=== PATIENT | female | born 1950 | race Caucasian/White ===

== ENCOUNTER 2019-12-08 12:55 | Outpatient (CLI) | payer MEDICARE, SELFPAY ==
[2019-12-08 14:31] LABS: Thyroid Stimulating Hormone 2.82 uIU/mL (0.36-3.74); Vitamin B12 597 pg/mL (193-986)
[2019-12-14 09:23] LABS: Vitamin D 25 Hydroxy 49 ng/mL (30-100)
== END 2019-12-08 12:56 | disposition home or self-care (01) ==
LOC: CHSLAB 13:02
DX: G62.9 Polyneuropathy, unspecified (principal); E11.29 Type 2 diabetes mellitus with other diabetic kidney complication; R80.9 Proteinuria, unspecified; Z79.4 Long term (current) use of insulin; E66.01 Morbid (severe) obesity due to excess calories
CPT/HCPCS: 36415; 82306; 82607; 84443

== ENCOUNTER 2020-01-02 16:00 | Outpatient (CLI) | payer MEDICARE, SELFPAY ==
--- NOTE | 2020-01-16 12:09 | SLEEP_ITS ---
Basic nocturnal polysomnogram. DATE OF STUDY: 01/02/2020 ORDERING PHYSICIAN: Dr. Suhail Manuel. REASON FOR THE STUDY: Sleep apnea, unspecified. 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 Her sleep survey indicates that she is having this test preoperatively, but does not list what type of surgery she is having. She denies snoring. She denies awakening at night with heartburn or belching. She denies waking from sleep feeling short of breath. She rarely has trouble sleeping with a cold. She denies gasping for breath at night, having breathing problems reported to her by others, sweating excessively at night, noticing her heart pounding irregularly at night, falling asleep during the day, falling asleep involuntarily, falling asleep while driving, sleeping during physical effort or with laughing or crying. She does not have loss of muscle tone with strong emotion. She does not have daytime difficulties due to excessive sleepiness. She does not feel paralyzed on waking or falling asleep and does not have vivid dreamlike scenes upon awakening or falling asleep. She is never afraid to go to sleep. She denies nightmares. She occasionally remembers her dreams. She denies racing thoughts, sadness, depression, anxiety, muscular tension, or noticing parts of her body jerk. She does not kick at night. She does not have crawly achy feelings in her legs. She does not have leg pain at night or morning jaw pain. She denies grinding her teeth at night. She occasionally is bothered by pain during the day, frequently is awakened by pain at night and frequently wakes up feeling stiff in the morning. She rarely has sore achy muscles. Normal bedtime is between 11:30 and 12 midnight, waking twice during the night to use the bathroom. She does have some pressure and pain in her legs. She also wakes up just to change positions. She wakes in the morning between 7 and 8 a.m.. Weekend schedule is the same. She does not take naps. She most of the time is drowsy in the morning for 3 hours or longer. MEDICAL COMORBIDITIES: Hyperlipidemia, hypertension, depression, diabetes mellitus, seasonal allergies, asthma/COPD, history of pulmonary embolism currently on anticoagulation. MEDICATIONS: 1. Rosuvastatin 40 mg a day. 2. Xarelto 20 mg a day. 3. Metoprolol succinate 50 mg a day. 4. Symbicort 160/4.5 two puffs twice a day. 5. Albuterol 90 mcg 2 puffs q.4 hours p.r.n. shortness of breath. 6. Montelukast 10 mg daily. 7. Topical nystatin applied to the affected areas twice a day. 8. Estradiol 1 mg daily. 9. Hydroxyzine 25 mg 1 tablet t.i.d. p.r.n. itching. 10. Lasix 20 mg p.r.n. swelling. 11. Losartan/hydrochlorothiazide 100/25 one tablet daily. 12. Duloxetine 60 mg a day. 13. Metformin 500 mg 1 tablet twice a day. 14. Azelastine 1 squirt each nostril twice a day. 15. DuoNeb q.8 hours as needed for shortness of breath. 16. Zyrtec 10 mg daily. 17. Potassium gluconate 83 mg 1 tablet daily. 18. Vitamin D3 2000 units daily. 19. Magnesium oxide 400 mg daily. 20. Osteo Bi-Flex 1 tablet daily. HABITS: Tobacco, a half pack per day for 2 years, quit 42 years ago. No alcohol. DESCRIPTION OF THE STUDY: On the Chappell Sleepiness Scale, her score is 13, elevated. This was conducted as a monitored study in the lab, initially requested as a split night study, but she did not meet criteria early enough. This was conducted using the [employer] multiple channel system including EOG, EEG, submental EMG, EKG, nasal and oral airflow using thermistors and nasal pressure sensors, chest and abdominal belts, body position data and pulse oximetry. The study was scored using [facility] guidelines.
== END 2020-01-02 16:01 | disposition home or self-care (01) ==
LOC: ANHCSM 16:02
DX: G47.30 Sleep apnea, unspecified (principal)
CPT/HCPCS: 95810

== ENCOUNTER 2020-04-17 10:10 | Outpatient (CLI) | payer MEDICARE, SELFPAY ==
[2020-04-17 10:51] LABS: Creatinine Urine 81.13 mg/dL (40-278)
[2020-04-17 10:52] LABS: Microalbumin Urine Random > 400.0 mg/L
[2020-04-17 11:14] LABS: Alanine Aminotransferase 26 U/L (14-59); Albumin Level 3.2 g/dL (3.4-5.0); Alkaline Phosphatase 124 U/L (46-116); Anion Gap 11.1 mmol/L (7-16); Aspartate Amino Transferase 20 U/L (15-37); Bilirubin,Total 0.4 mg/dL (0.00-1.00); Blood Urea Nitrogen 22 mg/dL (7-18); Calcium 9.5 mg/dL (8.5-10.1); Carbon Dioxide 33 mmol/L (21-32); Chloride 101 mmol/L (98-108); Cholesterol 140 mg/dL (0-200); Estimated Glomerular Filt Rate 60; Glucose 196 mg/dL (70-99); HDL Direct 44 mg/dL (40-60); LDL Cholesterol Calculated 68 mg/dL (<130); Osmolality Calculated 298 mOsm/kg (285-295); Potassium 5.1 mmol/L (3.5-5.1); Sodium 140 mmol/L (136-145); Total Protein 7.4 g/dL (6.4-8.2); Triglycerides 140 mg/dL (0-150)
[2020-04-19 22:10] LABS: C-Peptide 2.18 ng/mL (0.80-3.85)
== END 2020-04-17 10:11 | disposition home or self-care (01) ==
DX: R80.8 Other proteinuria (principal); E11.29 Type 2 diabetes mellitus with other diabetic kidney complication; Z79.4 Long term (current) use of insulin; Z96.41 Presence of insulin pump (external) (internal); E11.41 Type 2 diabetes mellitus with diabetic mononeuropathy
CPT/HCPCS: 36415; 80053; 80061; 82043; 84681

== ENCOUNTER 2020-06-15 13:20 | Outpatient (CLI) | payer MEDICARE, SELFPAY ==
[2020-06-15 14:11] LABS: Basophils Absolute Auto 0.04 K/mm3 (0.00-0.10); Basophils Percent Auto 0.6 % (0.0-1.0); Eosinophils Absolute Auto 0.15 K/mm3 (0.02-0.50); Eosinophils Percent Auto 2.3 % (1.0-6.0); Hemoglobin 12.7 g/dL (11.7-13.8); Immature Granulocyte Absolute 0.02 K/mm3 (0.00-0.00); Immature Granulocyte Percent A 0.3 % (0.0-0.0); Lymphocytes Percent Auto 35.8 % (18.0-42.0); Mean Corpuscular HGB Conc 31.8 g/dL (32.0-36.0); Mean Corpuscular Hemoglobin 27.4 pg (27.0-31.0); Mean Corpuscular Volume 86.2 fL (78.0-102.0); Mean Platelet Volume 11.2 fl (9.2-11.8); Monocytes Absolute Auto 0.37 K/mm3 (0.10-0.90); Monocytes Percent Auto 5.8 % (2.0-11.0); Neutrophils Absolute Auto 3.6 K/mm3 (1.7-7.2); Neutrophils Percent Auto 55.2 % (50.0-70.0); Platelet Count Result 228 K/mm3 (150-420); Red Blood Count 4.64 M/mm3 (4.20-5.40); White Blood Count 6.4 K/mm3 (4.8-10.8)
[2020-06-15 14:53] LABS: Albumin Level 3.3 g/dL (3.4-5.0); Anion Gap 6 mmol/L (8-16); Blood Urea Nitrogen 18 mg/dL (7-18); Carbon Dioxide 31 mmol/L (21-32); Chloride 106 mmol/L (98-108); Estimated Glomerular Filt Rate > 60; Glucose 179 mg/dL (70-99); Osmolality Calculated 301 mOsm/kg (285-295); Potassium 4.5 mmol/L (3.5-5.1); Sodium 143 mmol/L (136-145)
[2020-06-16 11:10] LABS: Creatinine Urine 132.67 mg/dL (40-278); Total Protein Urine Random 55.3 mg/dL (0.0-11.9)
[2020-06-19 15:25] LABS: Parathyroid Intact 46 pg/mL (14-64)
== END 2020-06-15 13:21 | disposition home or self-care (01) ==
LOC: CHSLAB 13:27
DX: N18.9 Chronic kidney disease, unspecified (principal)
CPT/HCPCS: 36415; 80069; 82570; 83970; 84156; 85025

== ENCOUNTER 2020-08-23 10:15 | Outpatient (CLI) | payer MEDICARE, SELFPAY ==
[2020-08-23 10:33] LABS: Basophils Absolute Auto 0.04 K/mm3 (0.00-0.10); Basophils Percent Auto 0.5 % (0.0-1.0); Eosinophils Absolute Auto 0.18 K/mm3 (0.02-0.50); Eosinophils Percent Auto 2.2 % (1.0-6.0); Immature Granulocyte Absolute 0.02 K/mm3 (0.00-0.00); Immature Granulocyte Percent A 0.2 % (0.0-0.0); Lymphocytes Absolute Auto 2.54 K/mm3 (1.10-4.50); Lymphocytes Percent Auto 31.4 % (18.0-42.0); Mean Corpuscular HGB Conc 32.5 g/dL (32.0-36.0); Mean Corpuscular Hemoglobin 28.3 pg (27.0-31.0); Mean Platelet Volume 10.5 fl (9.2-11.8); Monocytes Absolute Auto 0.46 K/mm3 (0.10-0.90); Monocytes Percent Auto 5.7 % (2.0-11.0); Neutrophils Absolute Auto 4.8 K/mm3 (1.7-7.2); Platelet Count Result 258 K/mm3 (150-420); Red Cell Distribution Width 15.4 % (11.6-14.4); White Blood Count 8.1 K/mm3 (4.8-10.8)
[2020-08-23 10:59] LABS: Hemoglobin A1C 6.4 % (<5.7)
[2020-08-23 11:54] LABS: Albumin Level 3.4 g/dL (3.4-5.0); Anion Gap 9 mmol/L (8-16); Blood Urea Nitrogen 12 mg/dL (7-18); Carbon Dioxide 30 mmol/L (21-32); Chloride 106 mmol/L (98-108); Estimated Glomerular Filt Rate > 60; Glucose 98 mg/dL (70-99); Osmolality Calculated 299 mOsm/kg (285-295); Potassium 4.2 mmol/L (3.5-5.1); Sodium 145 mmol/L (136-145); Thyroid Stimulating Hormone 3.37 uIU/mL (0.36-3.74)
[2020-08-23 12:03] LABS: Calcium 9.1 mg/dL (8.5-10.1)
[2020-08-24 10:48] LABS: Creatinine Urine 77.67 mg/dL (40-278)
[2020-08-24 10:49] LABS: MALB Creatinine Ratio 305.1 mg/g (0-30)
[2020-08-27 11:51] LABS: Parathyroid Intact 41 pg/mL (14-64)
[2020-08-28 12:57] LABS: C-Peptide 1.48 ng/mL (0.80-3.85)
== END 2020-08-23 10:16 | disposition home or self-care (01) ==
LOC: CHSLAB 10:19
DX: E11.29 Type 2 diabetes mellitus with other diabetic kidney complication (principal); R80.9 Proteinuria, unspecified; Z79.4 Long term (current) use of insulin; E55.9 Vitamin D deficiency, unspecified
CPT/HCPCS: 36415; 80069; 82043; 83036; 83970; 84443; 84681; 85025

== ENCOUNTER 2021-04-29 08:09 | Outpatient (CLI) | payer MEDICARE, SELFPAY ==
[2021-04-29 08:30] LABS: Hematocrit 38.4 % (35.0-42.0); Hemoglobin 12.7 g/dL (11.7-13.8); Mean Corpuscular HGB Conc 33.1 g/dL (32.0-36.0); Mean Corpuscular Hemoglobin 29.6 pg (27.0-31.0); Mean Corpuscular Volume 89.5 fL (78.0-102.0); Mean Platelet Volume 10.6 fl (9.2-11.8); Platelet Count Result 215 K/mm3 (150-420); Red Blood Count 4.29 M/mm3 (4.20-5.40); Red Cell Distribution Width 13.2 % (11.6-14.4); White Blood Count 7.8 K/mm3 (4.8-10.8)
[2021-04-29 09:46] LABS: Alanine Aminotransferase 70 U/L (14-59); Albumin Level 3.3 g/dL (3.4-5.0); Alkaline Phosphatase 152 U/L (46-116); Anion Gap 9 mmol/L (8-16); Aspartate Amino Transferase 27 U/L (15-37); Bilirubin,Total 0.5 mg/dL (0.00-1.00); Blood Urea Nitrogen 23 mg/dL (7-18); Calcium 8.6 mg/dL (8.5-10.1); Carbon Dioxide 29 mmol/L (21-32); Chloride 108 mmol/L (98-108); Cholesterol 119 mg/dL (0-200); Estimated Glomerular Filt Rate > 60; Ferritin 93 ng/mL (8-252); Glucose 147 mg/dL (70-99); HDL Direct 49 mg/dL (40-60); Iron 59 ug/dL (50-170); LDL Cholesterol Calculated 43 mg/dL (<130); Osmolality Calculated 308 mOsm/kg (285-295); Percent Iron Saturation 24 % (12-57); Potassium 4.3 mmol/L (3.5-5.1); Sodium 146 mmol/L (136-145); Total Protein 6.4 g/dL (6.4-8.2); Triglycerides 136 mg/dL (0-150); Vitamin B12 637 pg/mL (193-986)
[2021-04-29 09:48] LABS: Folic Acid > 20.0 ng/mL (8.6->20); Thyroid Stimulating Hormone Reflex 2.18 u/IU/mL (0.36-3.74)
[2021-05-01 10:17] LABS: Vitamin D 25 Hydroxy 31 ng/mL (30-100)
[2021-05-02 13:53] LABS: Parathyroid Intact 48 pg/mL (14-64)
== END 2021-04-29 08:10 | disposition home or self-care (01) ==
PROVIDERS: PCP Internal Medicine
DX: E66.01 Morbid (severe) obesity due to excess calories (principal); E11.29 Type 2 diabetes mellitus with other diabetic kidney complication; R50.9 Fever, unspecified; Z79.4 Long term (current) use of insulin; Z98.84 Bariatric surgery status; R74.9 Abnormal serum enzyme level, unspecified
CPT/HCPCS: 36415; 80053; 80061; 82306; 82525; 82607; 82728; 82746; 83540; 83550; 83970; 84425; 84443; 85027

== ENCOUNTER 2021-05-30 15:15 | Outpatient (CLI) | payer MEDICARE, SELFPAY ==
[2021-05-30 15:30] LABS: Basophils Absolute Auto 0.06 K/mm3 (0.00-0.10); Basophils Percent Auto 0.8 % (0.0-1.0); Eosinophils Absolute Auto 0.16 K/mm3 (0.02-0.50); Eosinophils Percent Auto 2.1 % (1.0-6.0); Hematocrit 39.6 % (35.0-42.0); Hemoglobin 12.9 g/dL (11.7-13.8); Immature Granulocyte Absolute 0.02 K/mm3 (0.00-0.00); Immature Granulocyte Percent A 0.3 % (0.0-0.0); Lymphocytes Absolute Auto 3.06 K/mm3 (1.10-4.50); Lymphocytes Percent Auto 40.2 % (18.0-42.0); Mean Corpuscular HGB Conc 32.6 g/dL (32.0-36.0); Mean Corpuscular Hemoglobin 29.2 pg (27.0-31.0); Mean Corpuscular Volume 89.6 fL (78.0-102.0); Mean Platelet Volume 10.9 fl (9.2-11.8); Monocytes Absolute Auto 0.48 K/mm3 (0.10-0.90); Monocytes Percent Auto 6.3 % (2.0-11.0); Neutrophils Absolute Auto 3.8 K/mm3 (1.7-7.2); Neutrophils Percent Auto 50.3 % (50.0-70.0); Platelet Count Result 212 K/mm3 (150-420); Red Blood Count 4.42 M/mm3 (4.20-5.40); Red Cell Distribution Width 13.2 % (11.6-14.4); White Blood Count 7.6 K/mm3 (4.8-10.8)
[2021-05-30 15:43] LABS: Albumin Level 3.5 g/dL (3.4-5.0); Anion Gap 8 mmol/L (8-16); Blood Urea Nitrogen 22 mg/dL (7-18); Calcium 9.2 mg/dL (8.5-10.1); Carbon Dioxide 30 mmol/L (21-32); Chloride 105 mmol/L (98-108); Estimated Glomerular Filt Rate > 60; Glucose 182 mg/dL (70-99); Osmolality Calculated 304 mOsm/kg (285-295); Phosphorus 4.1 mg/dL (2.6-4.7); Potassium 4.1 mmol/L (3.5-5.1); Sodium 143 mmol/L (136-145)
== END 2021-05-30 15:16 | disposition home or self-care (01) ==
LOC: CHSLAB 15:18
PROVIDERS: PCP Internal Medicine
DX: E11.29 Type 2 diabetes mellitus with other diabetic kidney complication (principal); R30.9 Painful micturition, unspecified; Z79.4 Long term (current) use of insulin; I10 Essential (primary) hypertension; R80.9 Proteinuria, unspecified
CPT/HCPCS: 36415; 80069; 85025

== ENCOUNTER 2021-05-31 08:32 | Outpatient (NON) | payer MEDICARE, SELFPAY ==
[2021-05-31 09:07] LABS: Microalbumin Urine Random 147.6 mg/L
== END 2021-05-31 08:33 | disposition home or self-care (01) ==
LOC: CHSLAB 08:35
DX: E11.29 Type 2 diabetes mellitus with other diabetic kidney complication (principal); R80.9 Proteinuria, unspecified; Z79.4 Long term (current) use of insulin; I10 Essential (primary) hypertension
CPT/HCPCS: 82043

== ENCOUNTER 2021-07-29 09:31 | Outpatient (CLI) | payer MEDICARE, SELFPAY ==
[2021-07-29 10:44] LABS: Cholesterol 199 mg/dL (0-200); HDL Direct 50 mg/dL (40-60); LDL Cholesterol Calculated 119 mg/dL (<130); Triglycerides 152 mg/dL (0-150)
== END 2021-07-29 09:32 | disposition home or self-care (01) ==
LOC: CHSLAB 09:35
DX: E78.00 Pure hypercholesterolemia, unspecified (principal)
CPT/HCPCS: 36415; 80061

== ENCOUNTER 2021-10-24 09:39 | Outpatient (CLI) | payer MEDICARE, SELFPAY ==
[2021-10-24 09:58] LABS: Hematocrit 43.3 % (35.0-42.0); Mean Corpuscular HGB Conc 32.3 g/dL (32.0-36.0); Mean Corpuscular Volume 89.6 fL (78.0-102.0); Mean Platelet Volume 10.8 fl (9.2-11.8); Platelet Count Result 222 K/mm3 (150-420); Red Blood Count 4.83 M/mm3 (4.20-5.40); Red Cell Distribution Width 13.2 % (11.6-14.4)
[2021-10-24 10:08] LABS: Hemoglobin A1C 6.7 % (<5.7)
[2021-10-24 10:52] LABS: Alanine Aminotransferase 48 U/L (14-59); Albumin Level 3.4 g/dL (3.4-5.0); Alkaline Phosphatase 121 U/L (46-116); Anion Gap 5 mmol/L (8-16); Aspartate Amino Transferase 25 U/L (15-37); Bilirubin,Total 0.5 mg/dL (0.00-1.00); Blood Urea Nitrogen 14 mg/dL (7-18); Carbon Dioxide 33 mmol/L (21-32); Chloride 108 mmol/L (98-108); Cholesterol 127 mg/dL (0-200); Estimated Glomerular Filt Rate > 60; Glucose 148 mg/dL (70-99); HDL Direct 54 mg/dL (40-60); LDL Cholesterol Calculated 50 mg/dL (<130); Osmolality Calculated 305 mOsm/kg (285-295); Potassium 4.3 mmol/L (3.5-5.1); Sodium 146 mmol/L (136-145); Thyroid Stimulating Hormone Reflex 1.55 u/IU/mL (0.36-3.74); Total Protein 6.6 g/dL (6.4-8.2); Triglycerides 115 mg/dL (0-150); Vitamin B12 1478 pg/mL (193-986)
== END 2021-10-24 09:40 | disposition home or self-care (01) ==
LOC: CHSLAB 09:46
DX: E78.00 Pure hypercholesterolemia, unspecified (principal); I10 Essential (primary) hypertension; E55.9 Vitamin D deficiency, unspecified; E66.01 Morbid (severe) obesity due to excess calories; Z68.44 Body mass index [BMI] 60.0-69.9, adult; Z96.41 Presence of insulin pump (external) (internal); E11.29 Type 2 diabetes mellitus with other diabetic kidney complication; R80.9 Proteinuria, unspecified; Z79.4 Long term (current) use of insulin; Z98.84 Bariatric surgery status
CPT/HCPCS: 36415; 80053; 80061; 82607; 83036; 84443; 85027

== ENCOUNTER 2021-12-30 14:46 | Outpatient (RCR) | payer MEDICARE, SELFPAY ==
--- NOTE | 2021-12-30 15:47 | PTOPEVAL ---
Thank you for referring Sarah Patel to [facility].? The patient is scheduled to be seen for therapy? ____x/week for ___ weeks. Please review, sign, date and return this plan of care JEREMIAS. I agree with and certify that the following plan of care is medically necessary. Referring Physician Date Admitting Provider: Attending Provider: David Zhang, MD Referring Provider: *PT Outpatient Evaluation Start: 12/30/21 14:48 Freq: Status: Active Protocol: Document 12/30/21 14:48 ACR (Rec: 12/30/21 15:46 ACR [email or web address]) Therapy Assessment Status Assessment Status Assessment Status Evaluation Evaluation Information Problem Diagnosis B knee pain Onset 12/23/21 Subjective Information Patient states that she is Query Text:As Reported By Patient/ having a lot of pain in both Family knees and got a cortizone shot in both knees a week ago. She states that she is able to walk around without her walker and can use her cane. Patient states that all activities are difficult for her especially weight bearing activities. She states that she is working out quite a bit so she is able to get the knees replaced. Patient states that her goal for therapy is to be able to walk a little more normal. Prior Level of Function Activity Level (Last 3 Months) Occupation retired Hand Dominance Right Activity of Daily Living Ability Independent Indoor/Home Mobility Independent Community Mobility Independent Stairs Ability Independent Functional Cognition (Planning, Shopping Independent , Taking Medications) Cooking Yes Cleaning Yes Laundry Yes Shopping Yes Driving Yes Pain Assessment Timing of Pain Assessment Timing of Pain Assessment Assessment Pain Scale Pain Scale Used Numeric (1 - 10) Self Report Pain Assessment Left Knee(s) Reported Pain Level 0 Greatest Pain Intensity 10 Right Knee(s) Reported Pain Level 0 Greatest Pain Intensity 10 Pain Score Pain Score 0,0: Self Report Interventions Used Interventions Used By Clinicians Activity or ADL's,Exercise Lower Extremity Range of Motion Knee Range of
--- NOTE | 2022-02-14 09:15 | PTOPEVAL ---
Thank you for referring Sarah Patel to [facility].? The patient is scheduled to be seen for therapy? __2__x/week for 6 visits. Please review, sign, date and return this plan of care JEREMIAS. I agree with and certify that the following plan of care is medically necessary. Referring Physician Date Admitting Provider: Attending Provider: David Zhang, Referring Provider: *PT Outpatient Evaluation Start: 12/30/21 14:48 Freq: Status: Active Protocol: Document 02/14/22 08:59 REI (Rec: 02/14/22 09:14 REI [email or web address]) Therapy Assessment Status Assessment Status Assessment Status Progress Evaluation Information Problem Diagnosis bilateral knee pain Onset 12/23/21 Subjective Information Pt. reports in the recent week Query Text:As Reported By Patient/ she has had several episodes Family of sharp pain in both knees. She states that she has been able to go without the walker since beginning therapy. She reports she is currently only using her cane for ambulation. Despite pain she is pleased with her progress. She reports that her goal remains to be able to walk without her cane. Pain Assessment Timing of Pain Assessment Timing of Pain Assessment Pre-Treatment Pain Scale Pain Scale Used Numeric (1 - 10) Self Report Pain Assessment Left Knee(s) Reported Pain Level 8 Right Knee(s) Reported Pain Level 8 Pain Score Pain Score 8,8: Self Report Interventions Used Interventions Used By Clinicians Electrical Stimulation, Exercise,Heat Lower Extremity Range of Motion Knee Range of Motion Right Knee Flexion Range of Motion - Active 115 Knee Extension Range of Motion - Active 4 Query Text: Left Knee Flexion Range of Motion - Active 110 Knee Extension Range of Motion - Active 4 Query Text: Lower Extremity Muscle Strength Testing General Lower Extremity Strength Gross Lower Extremity Strength -bilateral hip flexion 4+/5 -bilateral hip abduction 4-/5 -bilateral knee flexion 5/5 -bilateral knee extension 5/5 -bilateral ankle dorsiflexion 5/5 Balance Assessment Tinetti Balance Assessment Sitting Balance Steady, safe Ability to Arise Able, uses arms to help Attempts to Arise Arises on 1st attempt
== END 2022-02-26 17:28 | disposition home or self-care (01) ==
LOC: CHSPT 14:46
PROVIDERS: Visit Provider Orthopaedic Surgery Adult Reconstructive Orthopaedic Surgery
DX: M25.561 Pain in right knee (principal); M25.562 Pain in left knee; G89.29 Other chronic pain
CPT/HCPCS: 97014; 97110; 97112; 97161; 97530; G0283

== ENCOUNTER 2022-01-17 12:36 | Outpatient (NON) | payer MEDICARE, SELFPAY ==
[2022-01-17 13:15] LABS: Creatinine Urine 57.69 mg/dL (40-278)
[2022-01-17 13:17] LABS: MALB Creatinine Ratio 402.4 mg/g (0-30); Microalbumin Urine Random 232.2 mg/L
== END 2022-01-17 12:37 | disposition home or self-care (01) ==
LOC: CHSLAB 12:39
DX: E11.29 Type 2 diabetes mellitus with other diabetic kidney complication (principal); R80.9 Proteinuria, unspecified; Z79.4 Long term (current) use of insulin
CPT/HCPCS: 82043

== ENCOUNTER 2022-06-06 10:04 | Outpatient (CLI) | payer MEDICARE, SELFPAY ==
[2022-06-06 10:27] LABS: Basophils Absolute Auto 0.05 K/mm3 (0.00-0.10); Basophils Percent Auto 0.6 % (0.0-1.0); Eosinophils Absolute Auto 0.08 K/mm3 (0.02-0.50); Hematocrit 40.8 % (35.0-42.0); Hemoglobin 13.5 g/dL (11.7-13.8); Immature Granulocyte Absolute 0.04 K/mm3 (0.00-0.00); Immature Granulocyte Percent A 0.5 % (0.0-0.0); Lymphocytes Absolute Auto 2.55 K/mm3 (1.10-4.50); Lymphocytes Percent Auto 31.3 % (18.0-42.0); Mean Corpuscular HGB Conc 33.1 g/dL (32.0-36.0); Mean Corpuscular Hemoglobin 29.5 pg (27.0-31.0); Mean Corpuscular Volume 89.3 fL (78.0-102.0); Mean Platelet Volume 10.3 fl (9.2-11.8); Monocytes Absolute Auto 0.45 K/mm3 (0.10-0.90); Monocytes Percent Auto 5.5 % (2.0-11.0); Neutrophils Percent Auto 61.1 % (50.0-70.0); Platelet Count Result 233 K/mm3 (150-420); Red Blood Count 4.57 M/mm3 (4.20-5.40); Red Cell Distribution Width 13.4 % (11.6-14.4); White Blood Count 8.1 K/mm3 (4.8-10.8)
[2022-06-06 10:42] LABS: Creatinine Urine 65.71 mg/dL (40-278)
[2022-06-06 10:43] LABS: MALB Creatinine Ratio 266.6 mg/g (0-30); Microalbumin Urine Random 175.2 mg/L
[2022-06-06 11:01] LABS: Albumin Level 3.3 g/dL (3.4-5.0); Anion Gap 5 mmol/L (8-16); Blood Urea Nitrogen 17 mg/dL (7-18); Carbon Dioxide 32 mmol/L (21-32); Chloride 105 mmol/L (98-108); Estimated Glomerular Filt Rate > 60; Glucose 163 mg/dL (70-99); Osmolality Calculated 299 mOsm/kg (285-295); Potassium 4.3 mmol/L (3.5-5.1); Sodium 142 mmol/L (136-145)
== END 2022-06-06 10:05 | disposition home or self-care (01) ==
LOC: CHSLAB 10:10
DX: E11.29 Type 2 diabetes mellitus with other diabetic kidney complication (principal); R80.9 Proteinuria, unspecified; Z79.4 Long term (current) use of insulin
CPT/HCPCS: 36415; 80069; 82043; 85025

== ENCOUNTER 2022-10-27 10:09 | Outpatient (CLI) | payer MEDICARE, SELFPAY ==
[2022-10-27 10:55] LABS: Creatinine Urine 55.41 mg/dL (40-278); MALB Creatinine Ratio 266.1 mg/g (0-30); Microalbumin Urine Random 147.5 mg/L
[2022-10-27 11:28] LABS: Alanine Aminotransferase 29 U/L (14-59); Albumin Level 3.4 g/dL (3.4-5.0); Alkaline Phosphatase 111 U/L (46-116); Anion Gap 6 mmol/L (8-16); Aspartate Amino Transferase 19 U/L (15-37); Bilirubin,Total 0.5 mg/dL (0.00-1.00); Blood Urea Nitrogen 12 mg/dL (7-18); Calcium 8.7 mg/dL (8.5-10.1); Carbon Dioxide 31 mmol/L (21-32); Chloride 106 mmol/L (98-108); Cholesterol 154 mg/dL (0-200); Estimated Glomerular Filt Rate > 60; Glucose 166 mg/dL (70-99); HDL Direct 70 mg/dL (40-60); LDL Cholesterol Calculated 62 mg/dL (<130); Osmolality Calculated 299 mOsm/kg (285-295); Potassium 4.4 mmol/L (3.5-5.1); Sodium 143 mmol/L (136-145); Total Protein 6.6 g/dL (6.4-8.2); Triglycerides 110 mg/dL (0-150); Vitamin B12 482 pg/mL (193-986)
[2022-10-27 11:29] LABS: Thyroid Stimulating Hormone Reflex 2.03 u/IU/mL (0.36-3.74)
== END 2022-10-27 10:10 | disposition home or self-care (01) ==
LOC: CHSLAB 10:19
DX: E78.00 Pure hypercholesterolemia, unspecified (principal); I10 Essential (primary) hypertension; E11.29 Type 2 diabetes mellitus with other diabetic kidney complication; E55.9 Vitamin D deficiency, unspecified; R80.9 Proteinuria, unspecified; Z79.4 Long term (current) use of insulin; Z96.41 Presence of insulin pump (external) (internal); Z98.84 Bariatric surgery status
CPT/HCPCS: 36415; 80053; 80061; 82043; 82607; 84443

== ENCOUNTER 2023-04-03 10:12 | Outpatient (CLI) | payer MEDICARE, SELFPAY ==
[2023-04-03 10:42] LABS: Basophils Absolute Auto 0.06 K/mm3 (0.00-0.10); Basophils Percent Auto 0.7 % (0.0-1.0); Eosinophils Absolute Auto 0.11 K/mm3 (0.02-0.50); Eosinophils Percent Auto 1.3 % (1.0-6.0); Hematocrit 41.9 % (35.0-42.0); Hemoglobin 13.2 g/dL (11.7-13.8); Immature Granulocyte Absolute 0.02 K/mm3 (0.00-0.00); Immature Granulocyte Percent A 0.2 % (0.0-0.0); Lymphocytes Percent Auto 24.3 % (18.0-42.0); Mean Corpuscular HGB Conc 31.5 g/dL (32.0-36.0); Mean Corpuscular Hemoglobin 27.8 pg (27.0-31.0); Mean Corpuscular Volume 88.2 fL (78.0-102.0); Mean Platelet Volume 10.2 fl (9.2-11.8); Monocytes Absolute Auto 0.45 K/mm3 (0.10-0.90); Monocytes Percent Auto 5.5 % (2.0-11.0); Neutrophils Absolute Auto 5.6 K/mm3 (1.7-7.2); Platelet Count Result 268 K/mm3 (150-420); Red Blood Count 4.75 M/mm3 (4.20-5.40); Red Cell Distribution Width 14.4 % (11.6-14.4); White Blood Count 8.2 K/mm3 (4.8-10.8)
[2023-04-03 11:46] LABS: Alanine Aminotransferase 51 U/L (14-59); Albumin Level 3.4 g/dL (3.4-5.0); Alkaline Phosphatase 119 U/L (46-116); Anion Gap 8 mmol/L (8-16); Aspartate Amino Transferase 30 U/L (15-37); Bilirubin,Total 0.4 mg/dL (0.00-1.00); Blood Urea Nitrogen 16 mg/dL (7-18); Calcium 8.9 mg/dL (8.5-10.1); Carbon Dioxide 29 mmol/L (21-32); Chloride 107 mmol/L (98-108); Cholesterol 149 mg/dL (0-200); Estimated Glomerular Filt Rate > 60; Ferritin 34 ng/mL (8-252); Glucose 161 mg/dL (70-99); HDL Direct 68 mg/dL (40-60); Iron 52 ug/dL (50-170); LDL Cholesterol Calculated 62 mg/dL (<130); Osmolality Calculated 302 mOsm/kg (285-295); Percent Iron Saturation 16 % (12-57); Potassium 4.3 mmol/L (3.5-5.1); Sodium 144 mmol/L (136-145); Thyroid Stimulating Hormone 1.69 uIU/mL (0.36-3.74); Triglycerides 95 mg/dL (0-150); Vitamin B12 424 pg/mL (193-986)
[2023-04-03 12:01] LABS: Folic Acid > 20.0 ng/mL (8.6->20)
[2023-04-07 16:10] LABS: Vitamin D 25 Hydroxy 35 ng/mL (30-100)
[2023-04-07 18:53] LABS: Parathyroid Intact 65 pg/mL (14-64)
[2023-04-10 14:30] LABS: Vitamin B1 17 nmol/L (8-30)
== END 2023-04-03 10:13 | disposition home or self-care (01) ==
LOC: CHSLAB 10:20
DX: E66.01 Morbid (severe) obesity due to excess calories (principal); Z68.42 Body mass index [BMI] 45.0-49.9, adult; Z98.84 Bariatric surgery status; Z71.3 Dietary counseling and surveillance; K90.9 Intestinal malabsorption, unspecified; E46 Unspecified protein-calorie malnutrition; J98.4 Other disorders of lung
CPT/HCPCS: 36415; 80053; 80061; 82306; 82525; 82607; 82728; 82746; 83540; 83550; 83970; 84425; 84443; 85025

== ENCOUNTER 2023-06-08 10:41 | Outpatient (CLI) | payer MEDICARE, SELFPAY ==
[2023-06-08 11:02] LABS: Creatinine Urine 20.76 mg/dL (40-278); MALB Creatinine Ratio 357.4 mg/g (0-30); Microalbumin Urine Random 74.2 mg/L
== END 2023-06-08 10:42 | disposition home or self-care (01) ==
LOC: CHSLAB 10:47
DX: N18.2 Chronic kidney disease, stage 2 (mild) (principal); I10 Essential (primary) hypertension; E11.29 Type 2 diabetes mellitus with other diabetic kidney complication; R80.9 Proteinuria, unspecified; Z79.4 Long term (current) use of insulin; N06.0 Isolated proteinuria with minor glomerular abnormality
CPT/HCPCS: 82043

== ENCOUNTER 2023-07-02 10:21 | Outpatient (CLI) | payer MEDICARE, SELFPAY ==
[2023-07-02 10:50] LABS: Basophils Absolute Auto 0.07 K/mm3 (0.00-0.10); Basophils Percent Auto 0.8 % (0.0-1.0); Eosinophils Absolute Auto 0.04 K/mm3 (0.02-0.50); Eosinophils Percent Auto 0.4 % (1.0-6.0); Hematocrit 41.3 % (35.0-42.0); Hemoglobin 13.1 g/dL (11.7-13.8); Immature Granulocyte Absolute 0.03 K/mm3 (0.00-0.00); Immature Granulocyte Percent A 0.3 % (0.0-0.0); Lymphocytes Absolute Auto 2.44 K/mm3 (1.10-4.50); Lymphocytes Percent Auto 26.6 % (18.0-42.0); Mean Corpuscular HGB Conc 31.7 g/dL (32.0-36.0); Mean Corpuscular Hemoglobin 28.2 pg (27.0-31.0); Mean Platelet Volume 10.3 fl (9.2-11.8); Monocytes Percent Auto 5.4 % (2.0-11.0); Neutrophils Absolute Auto 6.1 K/mm3 (1.7-7.2); Neutrophils Percent Auto 66.5 % (50.0-70.0); Platelet Count Result 279 K/mm3 (150-420); Red Blood Count 4.64 M/mm3 (4.20-5.40); Red Cell Distribution Width 14.1 % (11.6-14.4); White Blood Count 9.2 K/mm3 (4.8-10.8)
[2023-07-02 11:12] LABS: Alanine Aminotransferase 35 U/L (14-59); Albumin Level 3.1 g/dL (3.4-5.0); Alkaline Phosphatase 111 U/L (46-116); Anion Gap 5 mmol/L (8-16); Aspartate Amino Transferase 18 U/L (15-37); Bilirubin,Total 0.4 mg/dL (0.00-1.00); Blood Urea Nitrogen 20 mg/dL (7-18); Carbon Dioxide 32 mmol/L (21-32); Chloride 106 mmol/L (98-108); Cholesterol 140 mg/dL (0-200); Estimated Glomerular Filt Rate > 60; Glucose 159 mg/dL (70-99); HDL Direct 73 mg/dL (40-60); LDL Cholesterol Calculated 53 mg/dL (<130); Osmolality Calculated 301 mOsm/kg (285-295); Phosphorus 4.3 mg/dL (2.6-4.7); Potassium 5.3 mmol/L (3.5-5.1); Sodium 143 mmol/L (136-145); Total Protein 6.8 g/dL (6.4-8.2); Triglycerides 69 mg/dL (0-150)
== END 2023-07-02 10:22 | disposition home or self-care (01) ==
LOC: CHSLAB 10:30
DX: I10 Essential (primary) hypertension (principal); E11.29 Type 2 diabetes mellitus with other diabetic kidney complication; R80.9 Proteinuria, unspecified; Z79.4 Long term (current) use of insulin; N06.0 Isolated proteinuria with minor glomerular abnormality; D63.1 Anemia in chronic kidney disease; N18.32 Chronic kidney disease, stage 3b
CPT/HCPCS: 36415; 80053; 80061; 80069; 84100; 85025